=== PATIENT | female | born 1980 | race Caucasian/White ===

== ENCOUNTER → 2020-09-20 13:52 | Outpatient (BNVA) | payer MEDICARE, MEDICAID, SELFPAY | PROVIDERS: PCP Family Medicine | DX: N31.9 Neuromuscular dysfunction of bladder, unspecified (principal) | CPT/HCPCS: 99212 ==

== ENCOUNTER → 2021-09-20 12:50 | Outpatient (BNVA) | payer MEDICARE, MEDICAID, SELFPAY | PROVIDERS: PCP Family Medicine | DX: N31.9 Neuromuscular dysfunction of bladder, unspecified (principal) | CPT/HCPCS: 99212 ==

== ENCOUNTER 2022-09-19 11:39 | Outpatient (REF) | payer MEDICARE, MEDICAID, SELFPAY | END 2022-09-19 11:40 | disposition home or self-care (01) | LOC: HO.LAB 11:39 | PROVIDERS: PCP Family Medicine; Visit Provider Urology | DX: N39.0 Urinary tract infection, site not specified (principal); N31.9 Neuromuscular dysfunction of bladder, unspecified | CPT/HCPCS: 87086; 87088; 87186; 99212 ==

== ENCOUNTER 2022-09-19 11:39 | Outpatient (AMB) | payer MEDICARE, MEDICAID, SELFPAY ==
--- NOTE | 2022-09-19 11:40 | MHC.OFFVIS ---
Intake Intake Visit Reasons: 1 year follow up Neurogenic bladder Intake Note: Patient is present for Follow Up Urology Med: none Antibiotic Allergy: Macrobid Blood Thinner: none Pharmacy: [facility] (New) Allergies divalproex sodium [Depakote] Allergy (Unknown, Verified 09/20/21 08:26) Unknown meperidine [Demerol] Allergy (Unknown, Verified 09/20/21 08:26) nausea and vomiting avacado Allergy (Unknown, Uncoded 02/19/19 00:00) swelling macrobid Allergy (Unknown, Uncoded 09/20/21 08:26) Unknown Medication List - Last Reconciled 09/19/22 by Derik Acuna MD baclofen 10 mg PO TID calcium carbonate mg PO catheterization tray (Bard Urethral Catheter Tray) As directed 3x daily cetirizine 10 mg PO DAILY ciprofloxacin HCl (Cipro) 500 mg PO BID 5 days cranberry extract 0 mg PO ferrous sulfate mg PO Lactobacillus rhamnosus GG (Culturelle) 0 caps PO levetiracetam mg PO pantoprazole mg PO pediatric multivitamin no.42 (Children's Multivitamin chewable tablet) 0 tabs PO polyethylene glycol 3350 grams PO sodium chloride 7% mL inhalation sulfamethoxazole-trimethoprim 800-160 mg (Bactrim DS) 1 tab feeding tube BID 5 days tizanidine 2 mg PO BEDTIME HPI HPI Comments History of Present Illness Details Deanna is a care dependent female suffering spina bifida. Nonambulatory paired motorized wheelchair. Resident of [facility]. She is a patient of . She is seen for the following urologic conditions - neurogenic bladder require CIC Neurogenic bladder Continuing CIC Reports having minimum to UTIs in past year Concerns regarding UTI today - UA shows positive nitrite Culture to be performed Antibiotics prescribed to administer per G-tube Has Port-A-Cath utilized for blood work and is flushed, has G-tube for ongoing feedings [facility] Medical History Neurogenic bladder Family History (Updated 09/25/21 @ 15:31 by Fran Chavarria) Mother Bladder cancer Review of Systems Const Denies chills and Denies fever(s) Card Reports no additional complaints and Denies syncope Resp Denies cough GI Denies abdominal pain and Denies heartburn Reports as per HPI and Denies change in libido Neuro Denies syncope Psych Denies change in libido Endo Denies change in libido Physical Exam Const General: cooperative, healthy appearing, comfortable and no acute distress Orientation/consciousness: patient oriented x3 HEENT Face and sinus: Yes normal facial exam Mouth: moist mucous membranes Neck Neck: Yes normal visual inspection, Yes full ROM and Yes trachea midline Chest Chest palpation & inspection: normal inspection of the chest Resp Effort & Inspection: normal respiratory effort, able to speak in complete sentences and no respiratory distress GI Inspection: Yes normal to inspection Back/Spine/Pelvis Cervical Spine: normal cervical lordosis Thoracic/Lumbar Spine: thoracic and lumbar spine normal to inspection Skin General skin exam: no rashes or lesions noted Neuro General: patient oriented x3, gait normal, tone normal and moves all extremities Extrem General: Yes normal to inspection and Yes capillary refill normal Results AMB Urinalysis, Automated UA Leukoctes 0 Isidro/uL Last Edit by Duyen Sargent [facility] on 09/19/22 12:10 UA Nitrite Negative Last Edit by Duyen Sargent [facility] on 09/19/22 12:10 UA Urobilinogen 0.2 mg/dL Last Edit by Duyen Sargent [facility] on 09/19/22 12:10 UA Protein 0 mg/dL Last Edit by Duyen Sargent [facility] on 09/19/22 12:10 UA pH 6.0 Last Edit by Duyen Sargent [facility] on 09/19/22 12:10 UA Blood 0 Eduardo/uL Last Edit by Duyen Sargent [facility] on 09/19/22 12:10 UA Specific [place] 1.010 Last Edit by Duyen Sargent [facility] on 09/19/22 12:10 UA Ketone Negative Last Edit by Duyen Sargent [facility] on 09/19/22 12:10 UA Bilirubin 0 mg/dL Last Edit by Duyen Sargent [facility] on 09/19/22 12:10 UA Glucose 0 mg/dL Last Edit by Duyen Sargent [facility] on 09/19/22 12:10 AMB Urinalysis, Automated UA Leukoctes 125 Isidro/uL Last Edit by Duyen Sargent [facility] on 09/19/22 12:13 UA Nitrite Positive Last Edit by Duyen Sargent Juan on 09/19/22 12:13 UA Urobilinogen 0.2 mg/dL Last Edit by Duyen Sargent, RMA on 09/19/22 12:13 UA Protein 0 mg/dL Last Edit by Duyen Sagrent, RMA on 09/19/22 12:13 UA pH 6.5 Last Edit by Duyen Sargent, RMA on 09/19/22 12:13 UA Blood 0 Eduardo/uL Last Edit by Duyen Sargent, RMA on 09/19/22 12:13 UA Specific [place] 1.015 Last Edit by Duyen Sargent, RMA on 09/19/22 12:13 UA Ketone Negative Last Edit by Duyen Sargent, RMA on 09/19/22 12:13 UA Bilirubin 0 mg/dL Last Edit by Duyen Sargent, RMA on 09/19/22 12:13 UA Glucose 0 mg/dL Last Edit by Duyen Sargent, A on 09/19/22 12:13 Results Reviewed Results Reviewed: Laboratory Last Values Urine pH (Auto) 6.0 09/19/22 12:08 Urine pH (Auto) 6.5 09/19/22 12:08 Specific [place] (Auto) 1.010 09/19/22 12:08 Specific [place] (Auto) 1.015 09/19/22 12:08 Urine Protein (Auto) 0 mg/dL 09/19/22 12:08 Urine Protein (Auto) 0 mg/dL 09/19/22 12:08 Glucose (UA)(Auto) 0 mg/dL 09/19/22 12:08 Glucose (UA)(Auto) 0 mg/dL 09/19/22 12:08 Urine Ketones (Auto) Negative 09/19/22 12:08 Urine Ketones (Auto) Negative 09/19/22 12:08 Urine Blood (Auto) 0 Eduardo/uL 09/19/22 12:08 Urine Blood (Auto) 0 Eduardo/uL 09/19/22 12:08 Urine Nitrite (Auto) Negative 09/19/22 12:08 Urine Nitrite (Auto) Positive 09/19/22 12:08 Urine Bilirubin (Auto) 0 mg/dL 09/19/22 12:08 Urine Bilirubin (Auto) 0 mg/dL 09/19/22 12:08 Urine Urobilinogen (Auto) 0.2 mg/dL 09/19/22 12:08 Urine Urobilinogen (Auto) 0.2 mg/dL 09/19/22 12:08 Leukocyte Esterase (Auto) 0 Isidro/uL 09/19/22 12:08 Leukocyte Esterase (Auto) 125 Isidro/uL 09/19/22 12:08 Assessment & Plan Assessment & Plan (1) Neurogenic bladder: Code(s): N31.9 - Neuromuscular dysfunction of bladder, unspecified Plan 12 month follow-up nurse practitioner Orders: Orders Urine Culture Today N39.0 - Urinary tract infection, site not specified AMB Urinalysis Automated Today Z13.9 - Encounter for screening, unspecified AMB Urinalysis Automated Today Z13.9 - Encounter for screening, unspecified Medications: Refilled sulfamethoxazole-trimethoprim 800-160 mg (Bactrim DS) via g tube 1 tab feeding tube BID 10 tabs 0RF uti 5 days Patient Instructions: Imaging studies, laboratory and physical exam results were discussed and reviewed in detail. No major barriers to patient understanding were identified. An opportunity to ask questions regarding the treatment plan was provided. All questions were answered. The patient expressed understanding and agreement with the above treatment plan. The patient is aware they should contact our office by phone for worsening of their current condition or the appearance of new urologic symptoms. Compliance is encouraged with any medications and followup testing that is ordered. It is a privilege to participate in the urologic care of your patient. If you have any questions or concerns regarding treatment for the above conditions, or other urologic issues, please do not hesitate to contact me. The office telephone contact is [phone]. This note is constructed using voice recognition software. While every effort has been made to ensure accuracy material worker errors may have been included. Yours sincerely, Dr Derik Acuna MD, [facility] - Urology Providers of Expert, Compassionate Care for the Genitourinary System Coding Level of Care Code Est Pt Level 4 (84833) Diagnoses Neurogenic bladder N31.9
== END 2022-09-19 12:23 | disposition home or self-care (01) ==
PROVIDERS: PCP Family Medicine; Visit Provider Urology
DX: N31.9 Neuromuscular dysfunction of bladder, unspecified (principal)
CPT/HCPCS: 99214

== ENCOUNTER 2023-09-17 11:30 | Outpatient (AMB) | payer MEDICARE, MEDICAID, SELFPAY ==
--- NOTE | 2023-09-17 11:30 | MHC.OFFVIS ---
Intake Visit Reasons: 1y follow up Intake Note: Patient is present for 1y Follow Up Urology Med: none Antibiotic Allergy: Macrobid Blood Thinner: none Order Picker/Assembler Required: No Allergies divalproex sodium [Depakote] Allergy (Unknown, Verified 09/17/23 12:02) Unknown meperidine [Demerol] Allergy (Unknown, Verified 09/17/23 12:02) nausea and vomiting avacado Allergy (Unknown, Uncoded 09/17/23 12:02) swelling macrobid Allergy (Unknown, Uncoded 09/17/23 12:02) Unknown Medication List - Last Reconciled 09/17/23 by OSBALDO Cortes baclofen 10 mg PO TID calcium carbonate mg PO catheter As directed 3x daily/ 90 per month catheterization tray (Bard Urethral Catheter Tray) As directed, 3x daily. cetirizine 10 mg PO DAILY cranberry extract 0 mg PO disposable gloves sterile gloves requested- as directed for daily CIC ferrous sulfate mg PO Lactobacillus rhamnosus GG (Culturelle) 0 caps PO levetiracetam mg PO lubricants for daily CIC insertion topically; pantoprazole mg PO pediatric multivitamin no.42 (Children's Multivitamin chewable tablet) 0 tabs PO polyethylene glycol 3350 grams PO povidone-iodine 10% 1 appl topical TID sodium chloride 7% mL inhalation tizanidine 2 mg PO BEDTIME HPI Comments Details: Deanna is a 42-year-old nonverbal female patient of Dr. Snow was accompanied by her staff members at her detention. She has a past medical history of spina bifida and is followed for her neurogenic bladder. In discussion with detention staff as patient is nonverbal and they provide much of today's today's history it appears patient has had multiple UTI since her last office visit here most recent just 1 month ago and has since completed Augmentin therapy. They continue to CIC every 8 hours however, in discussion with staff members that are accompanied by patient it appears she is no longer having incontinent episodes and upon catheterization there obtaining at minimum 500-700mL of urine. Discussed increase in CIC. Discussed at length potential causes of recurrent urinary tract infections. Call to patient's healthcare proxy Nathalie Berman who is patient's mother at [phone] to discuss plan of care. Discussed possible near future suprapubic tube verses continuation of CIC. Risks and benefits of these interventions were discussed. Discussed further treatment options for recurrent urinary tract infections. Staff otherwise deny any other issues or concerns at this time. [facility] Medical History Neurogenic bladder Family History (Updated 09/25/21 @ 15:31 by Fran Chavarria) Mother Bladder cancer Review of Systems Const Unobtainable due to mental condition Physical Exam Const General: cooperative, comfortable, no acute distress, well developed, alert and awake Limitations: wheelchair Resp Effort & Inspection: normal respiratory effort Psych Attitude: cooperative Insight: Poor insight present (Psych) Judgement: Poor judgement present (Psych) Assessment & Plan Assessment & Plan (1) Recurrent UTI: Code(s): N39.0 - Urinary tract infection, site not specified Category: Medical (2) Urinary retention with incomplete bladder emptying: Code(s): R33.9 - Retention of urine, unspecified Category: Medical (3) Neurogenic bladder: Code(s): N31.9 - Neuromuscular dysfunction of bladder, unspecified Category: Medical Plan Discussed at length potential causes of recurrent urinary tract infections. Will increase CIC to every 4-6 hours. Discussed obtaining retroperitoneal ultrasound as well as BUN and creatinine for further assessment evaluation. Start methenamine and vitamin-C as discussed and prescribed. Call to patient's healthcare proxy which is her mom Nathalie Berman to discuss plan of care; all questions were answered Follow-up in 3 months with [facility]; or sooner with any issues, concerns, and or questions. Medications: New ascorbic acid (vitamin C) 1 g PO DAILY 90 tabs 1RF 90 days N39.0 - Urinary tract infection, site not specified methenamine hippurate 1 g PO DAILY 90 tabs 1RF N39.0 - Urinary tract infection, site not specified Patient Instructions: The patient had an opportunity to ask questions regarding the treatment plan. All questions were answered. Physical exam, labs, and imaging were discussed and reviewed in detail. As well as risks, benefits, and discussion of treatment choices. No major barriers to understanding were identified. The patient expressed understanding and agreement with the above treatment plan. The patient was made aware they should contact our office by phone for worsening of their current condition, the appearance of new symptoms, or with any questions or concerns. Compliance is encouraged with any medications and follow up testing that is ordered. It is a privilege to be allowed the opportunity to participate in? your urological care.? Again, if you have any questions or concerns If you have any questions or concerns please do not hesitate to contact me. The office is [phone]. This note is constructed using voice recognition software. While every effort has been made to ensure accuracy lens inserter errors may have been included. Yours sincerely, OSBALDO Cortes Coding Level of Care Code Est Pt Level 4 (67909) Complex EM visit Add On G2211 Diagnoses Recurrent UTI N39.0 Urinary retention with incomplete bladder emptying R33.9 Neurogenic bladder N31.9 Time Spent (min) 25
== END 2023-09-17 12:05 | disposition home or self-care (01) ==
PROVIDERS: PCP Family Medicine; Visit Provider Nurse Practitioner Family
DX: N39.0 Urinary tract infection, site not specified (principal); R33.9 Retention of urine, unspecified; N31.9 Neuromuscular dysfunction of bladder, unspecified
CPT/HCPCS: 99214; G2211

== ENCOUNTER → 2023-09-17 11:30 | Outpatient (BNVA) | payer MEDICARE, MEDICAID, SELFPAY | PROVIDERS: PCP Family Medicine; Visit Provider Nurse Practitioner Family | DX: N39.0 Urinary tract infection, site not specified (principal); N31.9 Neuromuscular dysfunction of bladder, unspecified; R33.9 Retention of urine, unspecified | CPT/HCPCS: 99212 ==

== ENCOUNTER 2023-11-26 11:20 | Outpatient (AMB) | payer MEDICARE, MEDICAID, SELFPAY ==
--- NOTE | 2023-11-26 11:27 | A.OFFVIS_ITS ---
Intake Visit Reasons: 3m follow up Intake Note: Patient is Present for Follow up Discussion on SP tube placement Urology Medication: Methenamine, Vitamin C Antibiotic Allergies:Sulfa,Macrobid Blood Thinners: None Guardian of patient would like to discuss SP Tube placement Patient CIC 4 times during the day Thread Twister Required: No Edge Grinder: Edge Grinder Present Accompanied by: public affairs director Allergies divalproex sodium [Depakote] Allergy (Unknown, Verified 11/26/23 11:30) Unknown meperidine [Demerol] Allergy (Unknown, Verified 11/26/23 11:30) nausea and vomiting avacado Allergy (Unknown, Uncoded 11/26/23 11:30) swelling macrobid Allergy (Unknown, Uncoded 11/26/23 11:30) Unknown HPI Comments Details: Deanna is a care dependent female suffering spina bifida. Nonambulatory paired motorized wheelchair. Resident of [facility]. She is a patient of . She is seen for the following urologic conditions - neurogenic bladder require CIC Followed every 6 months review Vitamin-C and methenamine Cranberry extract Culturelle Continue bowel regimen Neurogenic bladder Continuing CIC Reports having minimum to UTIs in past year Concerns regarding UTI today - UA shows positive nitrite Culture to be performed Antibiotics prescribed to administer per G-tube Has Port-A-Cath utilized for blood work and is flushed, has G-tube for ongoing feedings [facility] Medical History Neurogenic bladder Family History Mother Bladder cancer Review of Systems Const Denies chills and Denies fever(s) Card Reports no additional complaints and Denies syncope Resp Denies cough GI Denies abdominal pain and Denies heartburn Reports as per HPI and Denies change in libido Neuro Denies syncope Psych Denies change in libido Endo Denies change in libido Physical Exam Const General: cooperative, healthy appearing, comfortable and no acute distress Orientation/consciousness: patient oriented x3 HEENT Face and sinus: Yes normal facial exam Mouth: moist mucous membranes Neck Neck: Yes normal visual inspection, Yes full ROM and Yes trachea midline Chest Chest palpation & inspection: normal inspection of the chest Resp Effort & Inspection: normal respiratory effort, able to speak in complete sentences and no respiratory distress GI Inspection: Yes normal to inspection Back/Spine/Pelvis Cervical Spine: normal cervical lordosis Thoracic/Lumbar Spine: thoracic and lumbar spine normal to inspection Skin General skin exam: no rashes or lesions noted Neuro General: patient oriented x3, gait normal, tone normal and moves all extremities Extrem General: Yes normal to inspection and Yes capillary refill normal Assessment & Plan Assessment & Plan (1) Neurogenic bladder: Code(s): N31.9 - Neuromuscular dysfunction of bladder, unspecified Category: Medical (2) Urinary retention with incomplete bladder emptying: Code(s): R33.9 - Retention of urine, unspecified Category: Medical (3) Recurrent UTI: Code(s): N39.0 - Urinary tract infection, site not specified Category: Medical Plan Continue six-month follow-up Patient Instructions: Imaging studies, laboratory and physical exam results were discussed and reviewed in detail. No major barriers to patient understanding were identified. An opportunity to ask questions regarding the treatment plan was provided. All questions were answered. The patient expressed understanding and agreement with the above treatment plan. The patient is aware they should contact our office by phone for worsening of their current condition or the appearance of new urologic symptoms. Compliance is encouraged with any medications and followup testing that is ordered. It is a privilege to participate in the urologic care of your patient. If you have any questions or concerns regarding treatment for the above conditions, or other urologic issues, please do not hesitate to contact me. The office telephone contact is [phone]. This note is constructed using voice recognition software. While every effort has been made to ensure accuracy yeast culture operator errors may have been included. Yours sincerely, Dr Derik Acuna MD, [facility] - Urology Providers of Expert, Compassionate Care for the Genitourinary System Coding Level of Care Code Est Pt Level 3 (29229) Diagnoses Neurogenic bladder N31.9 Urinary retention with incomplete bladder emptying R33.9 Recurrent UTI N39.0
== END 2023-11-26 12:11 | disposition home or self-care (01) ==
PROVIDERS: PCP Family Medicine; Visit Provider Urology
DX: N31.9 Neuromuscular dysfunction of bladder, unspecified (principal); R33.9 Retention of urine, unspecified; N39.0 Urinary tract infection, site not specified
CPT/HCPCS: 99213

== ENCOUNTER → 2023-11-26 11:20 | Outpatient (BNVA) | payer MEDICARE, MEDICAID, SELFPAY | PROVIDERS: PCP Family Medicine; Visit Provider Urology | DX: N31.9 Neuromuscular dysfunction of bladder, unspecified (principal) | CPT/HCPCS: 99212 ==

== ENCOUNTER 2024-05-28 10:40 | Outpatient (AMB) | payer MEDICARE, MEDICAID, SELFPAY ==
--- NOTE | 2024-05-28 10:51 | MHC.OFFVIS ---
Intake Visit Reasons: 6m follow up Intake Note: Patient is present for 6M F/U Urology Medication:LUBRICANT,VITAMIN C, METHENAMINE HIPPURATE Antibiotic Allergy:NONE Blood Thinner:NONE Corrosion Prevention Metal Sprayer Required: No Allergies divalproex sodium [Depakote] Allergy (Unknown, Verified 05/28/24 10:52) Unknown meperidine [Demerol] Allergy (Unknown, Verified 05/28/24 10:52) nausea and vomiting avacado Allergy (Unknown, Uncoded 05/28/24 10:52) swelling macrobid Allergy (Unknown, Uncoded 05/28/24 10:52) Unknown HPI Comments Details: Deanna is a care dependent female suffering spina bifida. Nonambulatory paired motorized wheelchair. Resident of [facility]. She is a patient of . She is seen for the following urologic conditions - neurogenic bladder require CIC Followed every 6 months review Vitamin-C and methenamine Cranberry extract Culturelle Continue bowel regimen Neurogenic bladder Continuing CIC Reports having minimum to UTIs in past year Concerns regarding UTI today - UA shows positive nitrite Culture to be performed Antibiotics prescribed to administer per G-tube Has Port-A-Cath utilized for blood work and is flushed, has G-tube for ongoing feedings [facility] Medical History Neurogenic bladder Family History Mother Bladder cancer Review of Systems Const Denies chills and Denies fever(s) Card Reports no additional complaints and Denies syncope Resp Denies cough GI Denies abdominal pain and Denies heartburn Reports as per HPI and Denies change in libido Neuro Denies syncope Psych Denies change in libido Endo Denies change in libido Physical Exam Const General: cooperative, healthy appearing, comfortable and no acute distress Orientation/consciousness: patient oriented x3 HEENT Face and sinus: Yes normal facial exam Mouth: moist mucous membranes Neck Neck: Yes normal visual inspection, Yes full ROM and Yes trachea midline Chest Chest palpation & inspection: normal inspection of the chest Resp Effort & Inspection: normal respiratory effort, able to speak in complete sentences and no respiratory distress GI Inspection: Yes normal to inspection Back/Spine/Pelvis Cervical Spine: normal cervical lordosis Thoracic/Lumbar Spine: thoracic and lumbar spine normal to inspection Skin General skin exam: no rashes or lesions noted Neuro General: patient oriented x3, gait normal, tone normal and moves all extremities Extrem General: Yes normal to inspection and Yes capillary refill normal Assessment & Plan Assessment & Plan (1) Neurogenic bladder: Code(s): N31.9 - Neuromuscular dysfunction of bladder, unspecified Category: Medical (2) Urinary retention with incomplete bladder emptying: Code(s): R33.9 - Retention of urine, unspecified Category: Medical (3) Recurrent UTI: Code(s): N39.0 - Urinary tract infection, site not specified Category: Medical Plan Six-month follow-up tele Patient Instructions: This note is constructed using voice recognition software. While every effort has been made to ensure accuracy structures technician errors may have been included. Imaging studies, laboratory and physical exam results were discussed and reviewed in detail. No major barriers to patient understanding were identified. An opportunity to ask questions regarding the treatment plan was provided. All questions were answered. The patient expressed understanding and agreement with the above treatment plan. The patient is aware they should contact our office by phone for worsening of their current condition or the appearance of new urologic symptoms. Compliance is encouraged with any medications and followup testing that is ordered. It is a privilege to participate in the urologic care of your patient. If you have any questions or concerns regarding treatment for the above conditions, or other urologic issues, please do not hesitate to contact me. The office telephone contact is [phone]. Sincerely, Dr Derik Acuna MD, [facility] - Urology Compassionate Specialist Care for the Genitourinary System Coding Level of Care Code Est Pt Level 3 (01990) Diagnoses Neurogenic bladder N31.9 Urinary retention with incomplete bladder emptying R33.9 Recurrent UTI N39.0
--- OUTSIDE RECORDS SUMMARY | 2024-05-28 11:30 | XMS_ITS | Clinical Summary ---
Author Organization 175 [facility] Address [address] [place] [address] Phone Care Team Providers Care Band Tier Name Role Phone Marylou Bhatt DO Primary Care Provider Social History Tobacco Use Types Packs/Day Years Used Date Smoking Tobacco: Never Assessed Comments Unknown Sex and Gender Information Value Date Recorded Sex Assigned at Not on file Legal Sex Female 11:03 AM EDT Gender Identity Not on file Sexual Orientation Not on file Plan of Treatment Upcoming Encounters Date Type Department Care Team ([facility] Contact Info) Description 07/15/2024 10:45 AM EDT Office Visit Orthopedic Surgery - [place] [address] [id number] Alfonso Arboleda, DPM [address] [address] Health Maintenance Due Date Last Done Comments Breast Cancer Screening 1978 DTaP,Tdap,and Td Vaccines (1 - Tdap) 1997 Hepatitis B Vaccines (1 of 3 - 19+ 3-dose series) 1997 Cervical Cancer Screening: P ap Smear 11/09/1999 Colorectal Cancer Screening: Colonoscopy 09/19/2023 Depression Screening 09/19/2023 HIV Screening 09/19/2023 Hepatitis C Screening 09/19/2023 Medicare Annual Wellness Visit 09/19/2023 Social Influencers of Health Screening 09/19/2023 COVID-19 Vaccine (1 - 2023-2 5 season) 2023 Influenza Vaccine (#1) 2023 HIB Vaccines Aged Out No longer eligi ble based on patient's age to complete this topic HPV Vaccines Aged Out No longer eligi ble based on patient's age to complete this topic Hepatitis A Vaccines Aged Out No long er eligible based on patient's age to complete this topic IPV Vaccines Aged Out No longer eligi ble based on patient's age to complete this topic MMR Vaccines Aged Out No longer eligi ble based on patient's age to complete this topic Meningococcal ACWY Vaccine Aged Out N o longer eligible based on patient's age to complete this topic Meningococcal B Vaccine Aged Out No l onger eligible based on patient's age to complete this topic Pneumococcal Vaccine: Pediat rics (0 to 5 Years) and At-Risk Patients (6 to 64 Years) Aged Out No longer eligible b ased on patient's age to complete this topic RSV Immunization Patients Un radha 20 months Aged Out No longer eligible b ased on patient's age to complete this topic Varicella Vaccines Aged Out No longer eligible based on patient's age to complete this topic Insurance MEDICARE Care Teams Band Tier Relationship Specialty Start Date End Date Marylou Bhatt DO [address] [facility] [address] [place] [address] PCP - General 05/26/23
== END 2024-05-28 11:42 | disposition home or self-care (01) ==
LOC: HO.HUSH 10:41
PROVIDERS: PCP Family Medicine; Visit Provider Urology
DX: N31.9 Neuromuscular dysfunction of bladder, unspecified (principal); R33.9 Retention of urine, unspecified; N39.0 Urinary tract infection, site not specified
CPT/HCPCS: 99213

== ENCOUNTER → 2024-05-28 10:40 | Outpatient (BNVA) | payer MEDICARE, MEDICAID, SELFPAY | PROVIDERS: PCP Family Medicine; Visit Provider Urology | DX: N31.9 Neuromuscular dysfunction of bladder, unspecified (principal); N39.0 Urinary tract infection, site not specified; R33.9 Retention of urine, unspecified | CPT/HCPCS: 99212 ==

== ENCOUNTER 2025-01-28 10:17 | Outpatient (AMB) | payer MEDICARE, MEDICAID, SELFPAY ==
--- NOTE | 2025-01-28 10:36 | A.OFFVIS_ITS ---
Intake Visit Reasons: 6M PVR/UA(set) Intake Note: Reason for Visit: Follow Up (Self Cath) Urology Meds: Vitamin C, Methenamine, Blood Thinners: None Labs: None Last Culture: 2023 Imaging: None Last PVR: None Requesting refill for striaght cath [employer] Required: No Allergies divalproex sodium (Depakote) Allergy (Unknown, Verified 01/28/25 10:42) Unknown meperidine (Demerol) Allergy (Unknown, Verified 01/28/25 10:42) nausea and vomiting [place] Allergy (Unknown, Uncoded 01/28/25 10:42) swelling macrobid Allergy (Unknown, Uncoded 01/28/25 10:42) Unknown HPI Comments Details: Deanna is a care dependent female suffering spina bifida. Nonambulatory paired motorized wheelchair. Resident of [facility]. She is a patient of . She is seen for the following urologic conditions - neurogenic bladder require CIC Followed every 6 months review Vitamin-C and methenamine Cranberry extract Culturelle Continue bowel regimen Refilled catheters Using 5 times per day - expected to continue use for ongoing future Minimal UTI since last visit 12 month follow-up Neurogenic bladder Continuing CIC Reports having minimum to UTIs in past year Antibiotics prescribed to administer per G-tube Has Port-A-Cath utilized for blood work and is flushed, has G-tube for ongoing feedings [facility] Medical History Neurogenic bladder Family History Mother Bladder cancer Review of Systems Const Denies chills and Denies fever(s) Card Reports no additional complaints and Denies syncope Resp Denies cough GI Denies abdominal pain and Denies heartburn Reports as per HPI and Denies change in libido Neuro Denies syncope Psych Denies change in libido Endo Denies change in libido Physical Exam Const General: cooperative, healthy appearing, comfortable and no acute distress Orientation/consciousness: patient oriented x3 HEENT Face and sinus: Yes normal facial exam Mouth: moist mucous membranes Neck Neck: Yes normal visual inspection, Yes full ROM and Yes trachea midline Chest Chest palpation & inspection: normal inspection of the chest Resp Effort & Inspection: normal respiratory effort, able to speak in complete sentences and no respiratory distress GI Inspection: Yes normal to inspection Back/Spine/Pelvis Cervical Spine: normal cervical lordosis Thoracic/Lumbar Spine: thoracic and lumbar spine normal to inspection Skin General skin exam: no rashes or lesions noted Neuro General: patient oriented x3, gait normal, tone normal and moves all extremities Extrem General: Yes normal to inspection and Yes capillary refill normal Assessment & Plan Assessment & Plan (1) Neurogenic bladder: Code(s): N31.9 - Neuromuscular dysfunction of bladder, unspecified Category: Medical (2) Urinary retention with incomplete bladder emptying: Code(s): R33.9 - Retention of urine, unspecified Category: Medical (3) Recurrent UTI: Code(s): N39.0 - Urinary tract infection, site not specified Category: Medical Plan Twelve month follow-up Orders: Orders US renal BI 12 Months N31.9 - Neuromuscular dysfunction of bladder, unspecified Medications: Changed From methenamine hippurate 1 g PO DAILY 90 tabs 1RF N39.0 - Urinary tract infection, site not specified To methenamine hippurate 1 g PO DAILY 90 tabs 3RF 90 days N39.0 - Urinary tract infection, site not specified From catheter As directed 3x daily/ 90 per month 90 ea 5RF N31.9 - Neuromuscular dysfunction of bladder, unspecified To catheter 14Fr regular length As directed 6x daily/180 per month 90 ea 5RF N31.9 - Neuromuscular dysfunction of bladder, unspecified Refilled catheter 14Fr regular length As directed 6x daily/180 per month 180 ea 5RF N31.9 - Neuromuscular dysfunction of bladder, unspecified ascorbic acid (vitamin C) 1 g PO DAILY 90 tabs 3RF 90 days N39.0 - Urinary tr act infection, site not specified Patient Instructions: This note is constructed using voice recognition software. While every effort has been made to ensure accuracy auto service advisor errors may have been included. Imaging studies, laboratory and physical exam results were discussed and reviewed in detail. No major barriers to patient understanding were identified. An opportunity to ask questions regarding the treatment plan was provided. All questions were answered. The patient expressed understanding and agreement with the above treatment plan. The patient is aware they should contact our office by phone for worsening of their current condition or the appearance of new urologic symptoms. Compliance is encouraged with any medications and followup testing that is ordered. It is a privilege to participate in the urologic care of your patient. If you have any questions or concerns regarding treatment for the above conditions, or other urologic issues, please do not hesitate to contact me. The office telephone contact is [phone]. Sincerely, Dr Derik Acuna MD, [facility] - Urology Compassionate Specialist Care for the Genitourinary System Coding Level of Care Code Est Pt Level 3 (38095) Add On Problem Visit Only Diagnoses Neurogenic bladder N31.9 Urinary retention with incomplete bladder emptying R33.9 Recurrent UTI N39.0
== END 2025-01-28 11:02 | disposition home or self-care (01) ==
LOC: HO.HUSH 10:18
PROVIDERS: PCP Family Medicine; Visit Provider Urology
DX: N31.9 Neuromuscular dysfunction of bladder, unspecified (principal); R33.9 Retention of urine, unspecified; N39.0 Urinary tract infection, site not specified
CPT/HCPCS: 99213; G2211

== ENCOUNTER → 2025-01-28 10:17 | Outpatient (BNVA) | payer MEDICARE, MEDICAID, SELFPAY | PROVIDERS: PCP Family Medicine; Visit Provider Urology | DX: N31.9 Neuromuscular dysfunction of bladder, unspecified (principal); R33.9 Retention of urine, unspecified; Z87.440 Personal history of urinary (tract) infections | CPT/HCPCS: 99212 ==